=== PATIENT | male | born 1990 | race Caucasian/White ===

== ENCOUNTER → 2022-03-19 | Outpatient (CLI) | payer OTHER ==
[~2022-03-19] MED LIST: AUGMENTIN 875 M1 TAB PO; CLARITIN10 MG PO; MOTRIN800 MG PO
== END | disposition home or self-care (01) ==
LOC: COVID19 04:26
PROVIDERS: ATTEND Internal Medicine
DX: Z11.52 Encounter for screening for COVID-19 (principal)